=== PATIENT | female | born 1970 | race Caucasian/White ===

== ENCOUNTER 2024-12-30 15:00 | Outpatient (RCR) | payer BC, SELFPAY | END 2024-12-31 07:44 | disposition home or self-care (01) | PROVIDERS: PCP Physician Assistant; Visit Provider Physician Assistant | DX: M25.521 Pain in right elbow (principal); M25.531 Pain in right wrist; R53.1 Weakness; Z51.89 Encounter for other specified aftercare | CPT/HCPCS: 97035; 97110; 97140; 97165; X5282 ==